=== PATIENT | male | born 1940 | race Caucasian/White ===

== ENCOUNTER 2017-03-01 12:14 | Day surgery (SDC) | payer MEDICARE, OTHER ==
[~2017-03-01] VITALS: Ht 177.8 cm; Wt 113.0 kg
[~2017-03-01 12:14] MED LIST: 0.9% Sodium Chloride 1,000 ML IV SCH; ACET325C PO; ASPI-973 PO; ATOR80TA PO; CALC600T12 PO; ESOM40CA41 PO; GABA-502 PO; GABA600T2 PO; GLUC-91 PO; LAMO25TA PO; LISI10TA PO; METF850T2 PO; METO10TA3 PO; METO25TA99 PO; NAPR220C11 PO; SAW450CA4 PO; SIME62.5 PO; Sodium Chloride LOK Flush 10 mL Syringe IV PRN; fentaNYL-PF 50 mCg/mL 2 mL Inj IVPUSH PRN
[2017-03-01 12:41] VITALS: BP 136/74; PULSE 51; RESP 16; O2SAT 96
[2017-03-01] MEDS ORDERED: SIME62.5 PO (12:44)
--- NOTE | 2017-03-01 14:00 | PCM.ENDEGD ---
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 Scope introduced esophagus. Esophagus showed normal shiny whitish mucosa consistent with squamous cell component. Z line wasat 40 cm from the incisors. There was a 2 cm segment of salmon-colored mucosa. Narrow banding done. There was no ulcer erosion mass or nodule. 4 quadrant biopsy obtained every 2 cm. Scope further advanced to the stomach. Multiple fundic polyps were noted from the fundus to the middle of the body of the stomach. Largest were about half a centimeter. Sampling biopsies obtained. Antrum showed some edema and redness consistent with gastritis. Biopsies obtained. Cardia fundus body antrum pylorus were all visualized. Retroflexion was done. Stomach was easily inflated and deflatable using air. Scope further advanced to the distal duodenum. Duodenum revealed normal villous structures with normal appearing folds without any mass ulcer erosion. 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 Presedation Assessment Risks and Benefits Informed consent was obtained from the patient after all risks and benefits including but not limited to drug reaction, infection, pain, bleeding, perforation, as well as alternatives were discussed. Patient monitoring Continuous pulse oximetry, cardiac monitoring, blood pressure monitoring, IV access, and oxygen at 2L per nasal cannula. Periprocedural Fentanyl: Fentanyl 100mcg Incrementally Midazolam: Midazolam 5mg Incrementally Complications There were no periprocedural complications identified. Post Procedure Plan Post Procedure Recommendations 1. Restrict activities today. 2. Resume normal activities in the morning. 3. Resume medications. 4. GERD behavioral modification: - Avoid fatty, acidic, spicy, large meals - Do not lie down after meals - Do not eat or drink anything for at least 2 1/2 hours before going to bed at night - Discontinue tobacco and alcohol - Decrease or avoid caffeine - Avoid chocolate and mints - Decrease weight - Avoid aspirin and non steroidal anti-inflammatory agents (NSAID) such as Aleve, Advil, Mobic, Naproxen, Ibuprofen, etc 5. Add proton pump inhibitor. Take 30 minutes before 1st meal of the day. 6. Patient informed of normal post procedure side effects as bloating, drowsiness, blood streaking in the stool 7. If gastric biopsy reveal H.pylori, continue with appropriate treatment 8. If small bowel biopsy reveals celiac, continue with appropriate treatment 9. Please don't hesitate to call me with any questions Brady Amanda MD Mar 01, 2017 14:00
[2017-03-01 14:05] VITALS: BP 139/82; PULSE 64; RESP 16; O2SAT 95
[2017-03-01 14:17] VITALS: BP 134/74; PULSE 62; RESP 16; O2SAT 94
--- NOTE | 2017-03-03 17:16 | PATH ---
SURGICAL PATHOLOGY Attending Physician:Brady Amanda M.D. CASE STATUS: Signed Out PATIENT NAME: ABRAM MORAN PID: [id number] : 1940 DATE COLLECTED:03/01/2017 00:00 SPECIMEN: 1: Gastric, Biopsy 2: Stomach, Polyp, Biopsy 3: Esophagus, Biopsy CLINICAL HISTORY: 1. GASTRIC R/O H.PYLORI 2. GASTRIC POLYPS 3. DISTAL ESOPHAGUS BXS FINAL DIAGNOSIS: 1.GASTRIC BIOPSY: PORTIONS OF ANTRAL AND BODY-TYPE MUCOSA WITH MILD CHRONIC GASTRITIS AND FEATURES OF REACTIVE GASTROPATHY. No definite H. pylori organisms identified by H&E stain. Immunohistochemistry studies pending; results will be reported as an addendum. Intestinal metaplasia is present. Negative for dysplasia and malignancy. 2.GASTRIC POLYPS, BIOPSY: PORTIONS OF FUNDIC GLAND POLYP X2. Negative for dysplasia and malignancy. 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 Negative for dysplasia and malignancy. ICD10 K22.7 GROSS DESCRIPTION: The specimen is received in three formalin filled containers labeled with the patient's name. 1). The specimen is sublabeled "gastric" and consists of 3 portions of tissue which aggregate to 0.2 x 0.2 x 0.2 CM. The specimen is entirely submitted in cassette 1A. 2). The specimen is sublabeled "gastric polyps" and consists of 2 portions of tissue which aggregate to 0.3 x 0.3 x 0.2 CM. The specimen is entirely submitted in cassette 2A. 3). The specimen is sublabeled "distal esophagus" and consists of 2 portions of tissue which aggregate to 0.2 x 0.2 x 0.2 CM. The specimen is entirely submitted in cassette 3A. 03/02/[address] [facility] MICRO DESCRIPTION: See diagnosis. ICD-9 CODES: CPT CODES: 1: 94052, 78500 2: 01072 3: 23623 Electronically Signed Out Latoya Tong MD [facility] [address], [place] [address] Technical component performed at [facility], [address], [place], [address]
== END 2017-03-01 23:59 | disposition home or self-care (01) ==
LOC: END 12:14
PROVIDERS: ATTEND Internal Medicine
DX: K22.70 Barrett's esophagus without dysplasia (principal); K31.7 Polyp of stomach and duodenum; K29.50 Unspecified chronic gastritis without bleeding; K21.9 Gastro-esophageal reflux disease without esophagitis; R10.13 Epigastric pain; I10 Essential (primary) hypertension; I25.10 Atherosclerotic heart disease of native coronary artery without angina pectoris; I50.9 Heart failure, unspecified; E78.5 Hyperlipidemia, unspecified; E11.21 Type 2 diabetes mellitus with diabetic nephropathy; E78.00 Pure hypercholesterolemia, unspecified; M19.90 Unspecified osteoarthritis, unspecified site; N40.0 Benign prostatic hyperplasia without lower urinary tract symptoms; Z95.1 Presence of aortocoronary bypass graft; Z79.82 Long term (current) use of aspirin; Z79.84 Long term (current) use of oral hypoglycemic drugs
CPT/HCPCS: 43239; G0500; J2250; J3010; J7030